=== PATIENT | female | born 1995 | race American Indian/Alaskan Native ===

== ENCOUNTER 2020-01-13 20:43 | Emergency (ER) | payer SELFPAY ==
[2020-01-13 20:58] VITALS: BP 122/76
--- NOTE | 2020-01-13 22:07 | XRay Report ---
. CHEST 2 VIEWS INDICATION / CLINICAL INFORMATION: MAIN. COMPARISON: None available. FINDINGS: SUPPORT DEVICES: None. HEART / MEDIASTINUM: No significant abnormality. LUNGS / PLEURA: No significant pulmonary or pleural abnormality. No pneumothorax. ADDITIONAL FINDINGS: No significant additional findings. IMPRESSION: 1. No acute findings. Signer Name: Mikal Murray MD Signed: 01/13/2020 10:02 PM Workstation Name: [id number]
== END 2020-01-13 22:30 | disposition left against medical advice (07) ==
LOC: ED 20:43
DX: R07.9 Chest pain, unspecified (principal); Z53.21 Procedure and treatment not carried out due to patient leaving prior to being seen by health care provider
CPT/HCPCS: 71046; 93005